=== PATIENT | male | born 1940 | race Caucasian/White ===

== ENCOUNTER 2018-10-06 11:44 | Day surgery (SDC) | payer MEDICARE, OTHER ==
[~2018-10-06 11:44] MED LIST: 0.9 % SODIUM CHLORIDE 10 ML VIAL IVP ONE; CEFAZOLIN 2 Gram 2 GM/50 ML BAG IVPB ONE; CELECOXIB 100 MG CAPSULE PO ONE; FAMOTIDINE 20MG TABLET PO ONE; MECLIZINE 25 MG TABLET PO ONE; METOCLOPRAMIDE 10 MG TABLET PO ONE; TRANEXAMIC ACID 1,000 MG/10 ML ML IV ONE; VANCOMYCIN HCL 1,000 MG in DEXTROSE 5 % IN WATER 250 ML IVPB ONE
[2018-10-06] MEDS ORDERED: BUPIVACAINE 0.5% W/EPI MPF 30 ML VIAL IVP ONE (11:45)
[2018-10-06] MEDS ORDERED: MIDAZOLAM HCL 2MG/2ML VIAL IV ONE (11:45)
[2018-10-06] MEDS ORDERED: PROPOFOL 10 MG/ML VIAL IV ONE (11:45)
[2018-10-06] MEDS ORDERED: FENTANYL PF 100MCG/2ML VIAL IV ONE (11:45)
[2018-10-06] MEDS ORDERED: TRANEXAMIC ACID 1,000 MG/10 ML ML IV ONE (11:45)
[2018-10-06] MEDS ORDERED: LIDOCAINE 2% MDV (20MG/ML) 20ML VIAL IV ONE (11:45)
[2018-10-06 13:21] LABS: ABO GROUP A; ANTIBODY SCREEN NEGATIVE (NEGATIVE); RH TYPE POSITIVE
[2018-10-06] MEDS ORDERED: ONDANSETRON HCL IV 4 MG/2 ML VIAL IVP PRN (15:08)
[2018-10-06] MEDS ORDERED: AL HYDROX/MAG HYDROX 30ML UD PO PRN (15:08)
[2018-10-06] MEDS ORDERED: KETOROLAC 30 MG/ML VIAL IVP PRN ×2 (15:08)
[2018-10-06] MEDS ORDERED: ZOLPIDEM TARTRATE 5 MG TABLET PO PRN (15:08)
[2018-10-06] MEDS ORDERED: DIPHENHYDRAMINE HCL 25 MG CAPSULE PO PRN (15:08)
[2018-10-06] MEDS ORDERED: TRAMADOL HCL 50 MG TABLET PO PRN (15:08)
[2018-10-06] MEDS ORDERED: BISACODYL 10 MG SUPP RC PRN (15:08)
[2018-10-06] MEDS ORDERED: ACETAMINOPHEN 325 MG TAB PO PRN (15:08)
[2018-10-06] MEDS ORDERED: HYDROCODONE/APAP 10/325 TABLET PO PRN ×2 (15:08)
[2018-10-06] MEDS ORDERED: NALOXONE 0.4 MG/1 ML VIAL IVP PRN (15:08)
[2018-10-06] MEDS ORDERED: MAGNESIUM HYDROXIDE 30 ML UDC PO PRN (15:08)
[2018-10-06] MEDS ORDERED: HYDROMORPHONE HCL 2 MG/ML VIAL IM PRN (15:08)
[2018-10-06] MEDS ORDERED: ACETAMINOPHEN W/ CODEINE 300MG/60MG TABLET PO PRN ×2 (15:08)
[2018-10-06] MEDS: PATIENT OWN MED: METFORMIN 500 MG PO SCH ×2 (18:06→21:10)
[2018-10-06] MEDS: PATIENT OWN MED: LOSARTAN 50 MG PO SCH (18:07)
[2018-10-06] MEDS: POTASSIUM CHLORIDE/D5-0.9%NACL 20 MEQ/1,000 ML BAG IV SCH ×2 (20:09→23:42)
[2018-10-06] MEDS: CEFAZOLIN 2 Gram 2 GM/50 ML BAG IVPB SCH (21:19)
[2018-10-06] MEDS: DOCUSATE SODIUM 100 MG CAPSULE PO SCH (21:19)
[2018-10-07] MEDS: CEFAZOLIN 2 Gram 2 GM/50 ML BAG IVPB SCH ×2 (05:12→12:03)
[2018-10-07 06:57] LABS: HEMATOCRIT 38.2 % (42.0-52.0); HEMOGLOBIN 12.3 gm/dl (14.0-18.0)
[2018-10-07 07:43] LABS: BLOOD UREA NITROGEN 13 mg/dL (8-23); CREATININE 0.8 mg/dL (0.7-1.2); EST GLOMERULAR FILTRATION RATE > 60 mL/min; GLUCOSE,RANDOM 173 mg/dL (74-109)
--- NOTE | 2018-10-07 08:08 | Rehab Evaluation ---
Patient Information - Patient Information Diagnosis: right knee OA Ordered Treatment: OT Evaluate and Treat Status: Initial Evaluation Surgery: Yes (right TKA) Date of Surgery: 10/06/18 Past Medical/Surgical Hx: PAST MEDICAL/SURGICAL HISTORY Past Surgical History bilat hip replacements LTKA cervical fusion tonsils hernias bilat cats detached retina left shoulder RTC PMH - Respiratory Hx Respiratory Disorders No PMH - Cardiovascular Hx Cardiovascular Disorders Yes Hx Hypertension Yes: on meds good control Exercise Tolerance Good Comment: works out 3 x's a week PMH - Neuro Hx Neurological Disorders No PMH - GI Hx Gastrointestinal Disorders No PMH - Hx Genitourinary Disorders No PMH - Endocrine Hx Endocrine Disorders Yes Hx Diabetes Yes: Dx'd 8 yrs ago Hx of NIDDM Yes Comment: blood sugars 115-125 A1C 6.1 PMH - Musculoskeletal Hx Musculoskeletal Disorders Yes Hx Arthritis Yes PMH - Psych Hx Psychiatric Problems No PMH - Hematology/Oncology Hx Hematology/Oncology Yes Disorders Hx Cancer Yes: skin CA Premorbid Status: Detail (Pt lives with spouse in a 2 story condo, he stays on the main level for the most part. He has 2 steps at the entrance, no handrails but there are things to hold onto. Pt has a walk in shower with a seat and grab bars as well as an elevated toilet, no grab bars. He and spouse share home mgmt, meal prep and laundry. His daughter will be staying with him until Friday. He has a sock aid, rn gyn, long shoe horn, straight cane and 2 wheeled walker.) Social History: Detail (Pt reports he has a supportive spouse and daughter.) Precautions: [place], Fall - Time With Patient Total Time Spent With Patient (Min): 30 Treatment Procedures: Detail (OT eval low complexity) Subjective Information - Subjective Information Per Patient Objective Data - Pain Pain Present: Yes (2-12/06) - Mental Status Patient Orientation: Oriented x3 - Visual Perception Appears within normal limits for therapeutic activities - ROM Within normal limits (Francis UE AROM WNL) - Strength/Tone Within normal limits (Francis UE strength WNL) - Coordination Appears within normal limits for therapeutic activities - Transfers Independent (Ind with sit to stand from chair height.) - Balance Balance Sitting: Good Balance Standing: Good - Sensation Intact - Gait Detail (Pt ambulating in room with and without 2 wheeled walker.) - ADL's/IADL's Detail (Pt educated and able to demonstrate learning of modified LE dressing techniques including donning pants, socks and tennis shoes using sock aid. Reviewed kitchen and shower safety and modifications, pt verbalized understanding.) Therapy Assessment - Therapy Assessment Detail (Pt is Ind with modified LE dressing techniques.) Problem List - Problem List Occupational Therapy Problem List: Detail (No current IP OT problems identified. ) Goals - Goals Occupational Therapy Goals: No current IP OT goals identified. Prognosis - Prognosis Good Plan - Plan Occupational Therapy Plan: No further IP OT recommended. Thank you for this referral.
[2018-10-07] MEDS: DOCUSATE SODIUM 100 MG CAPSULE PO SCH (09:02)
[2018-10-07] MEDS: PATIENT OWN MED: METFORMIN 500 MG PO SCH (09:03)
[2018-10-07] MEDS: PATIENT OWN MED: LOSARTAN 50 MG PO SCH (09:03)
[2018-10-07] MEDS: POTASSIUM CHLORIDE/D5-0.9%NACL 20 MEQ/1,000 ML BAG IV SCH (09:06)
--- NOTE | 2018-10-07 09:32 | Rehab Evaluation ---
Patient Information - Patient Information Diagnosis: right knee OA Ordered Treatment: PT Evaluate and Treat Status: Initial Evaluation Surgery: Yes (right TKA) Date of Surgery: 10/06/18 Past Medical/Surgical Hx: PAST MEDICAL/SURGICAL HISTORY Past Surgical History bilat hip replacements LTKA cervical fusion tonsils hernias bilat cats detached retina left shoulder RTC PMH - Respiratory Hx Respiratory Disorders No PMH - Cardiovascular Hx Cardiovascular Disorders Yes Hx Hypertension Yes: on meds good control Exercise Tolerance Good Comment: works out 3 x's a week PMH - Neuro Hx Neurological Disorders No PMH - GI Hx Gastrointestinal Disorders No PMH - Hx Genitourinary Disorders No PMH - Endocrine Hx Endocrine Disorders Yes Hx Diabetes Yes: Dx'd 8 yrs ago Hx of NIDDM Yes Comment: blood sugars 115-125 A1C 6.1 PMH - Musculoskeletal Hx Musculoskeletal Disorders Yes Hx Arthritis Yes PMH - Psych Hx Psychiatric Problems No PMH - Hematology/Oncology Hx Hematology/Oncology Yes Disorders Hx Cancer Yes: skin CA Premorbid Status: Detail (Pt lives with spouse in a 2 story condo, he stays on the main level for the most part. He has 2 steps at the entrance, no handrails but there are things to hold onto. Pt has a walk in shower with a seat and grab bars as well as an elevated toilet, no grab bars. He and spouse share home mgmt, meal prep and laundry. His daughter will be staying with him until Friday. He has a sock aid, water supervisor, long shoe horn, straight cane and 2 wheeled walker.) Social History: Detail (Pt reports he has a supportive spouse and daughter.) Precautions: [place], Fall - Time With Patient Total Time Spent With Patient (Min): 25 Treatment Procedures: Detail (Initial Evaluation, gait training, instruction in HEP.) Subjective Information - Subjective Information Per Patient (The patient has no complaints of pain.) Objective Data - Mental Status Patient Orientation: Oriented x3 - Visual Perception Appears within normal limits for therapeutic activities - ROM Not within normal limits (The patient's R knee AROM is limited s/p surgery. All other LE AROM is WNL.) - Strength/Tone Not within normal limits (The patient's R LE strength was not formally tested but is WFL. LE strength is generally 5/5.) - Bed Mobility Independent (The patient is independent with supine to and from sit transfer.) - Transfers Independent (The patient was independent with sit to and from stand transfer.) - Balance Balance Sitting: Good Balance Standing: Good - Sensation Intact - Gait Detail (The patient ambulated with standard cane WBAT on the R LE a distance of 200 feet x 1, independently. The patient ambulated on stairs with use of railing and standard cane using proper technique with supervision for safety only.) Therapy Assessment - Therapy Assessment Detail (The patient is independent with bed mobility, transfers and ambulation. The patient has met all inpatient PT goals and is discharged from inpatient PT.) Patient Education - Patient Education Teaching Topic: Exercise/Activity (The patient completed TKA HEP including gluteal sets, ankle pumps, quad sets, hamstring sets, SLR and heel slides.) Response: Return Demonstration Teaching Method: Demonstration Teaching Recipient: Patient Barriers To Learning: None Problem List - Problem List Physical Therapy Problem List: Detail (Decreased R knee AROM and R LE strength as to be expected following surgery.) Occupational Therapy Problem List: Detail (No current IP OT problems identified. ) Goals - Goals Physical Therapy Goals: All inpatient PT goals have been met. Occupational Therapy Goals: No current IP OT goals identified. Prognosis - Prognosis Good Plan - Plan Physical Therapy Plan: Patient is discharged from inpatient PT. Patient is to continue with Home PT. Occupational Therapy Plan: No further IP OT recommended. Thank you for this referral.
--- NOTE | 2018-10-07 09:41 | Operative Note ---
DATE OF SURGERY: 10/06/2018 Surgeon: Wilbert Rae M.D. PREOPERATIVE DIAGNOSIS: Endstage arthrosis of the right knee. POSTOPERATIVE DIAGNOSIS: Endstage arthrosis of the right knee. OPERATION: Cemented right total knee arthroplasty, using [employer] components, with a size 7 cobalt-chrome femur, a size 7 stem tibial baseplate, a 9 mm lipped tibial insert, and a 35 mm all plastic patella. Anesthesia: Spinal. PREPARATION: Chloraprep. INDIVIDUAL CONSIDERATIONS: None. PROCEDURE: The patient was taken to the operating room and placed supine on the operating room table. He had a successful induction of a spinal anesthetic. The right lower extremity was prepped and draped in the usual fashion. The patient had a midline approach to the knee. Sharp dissection was carried down through the skin and subcutaneous tissue, small veins were coagulated with a Bovie. A medial arthrotomy was performed, the patella was everted, the knee was flexed. The patient had exposed bone throughout with large osteophytes. The fat pad was resected, the ACL was sacrificed. Provisional anterior meniscectomies were performed and the capsule was released from the medial proximal tibia. The initial femoral photogrammetry airplane pilot hole was then made free hand. The intramedullary femoral cutting jig was placed. It was cut in 7.0 degrees of valgus and adjusted for rotation, secured with pins for a 10 mm resection. The initial transverse cut was then made. A skid guide was placed in the anterior and posterior photogrammetry airplane pilot holes. It was found that a size 7 would be appropriate. The anterior and posterior cuts followed by chamfer cuts were made. Osteophytes removed and a size 7 trial was found to fit well. The tibia was brought forward. The remainder of the meniscal remnants were removed with a Bovie. The extraarticular tibial cutting jig was placed. It was cut in neutral with a 3 degree AP slope. Care was taken to adjust for rotation and flexion using the extraarticular alignment guide. It was set for a 9 mm resection, T'd off the high lateral side and secured with pins. When cutting the tibia, care was taken to preserve the PCL insertion on the tibia. Osteophytes were removed and it was found that a size 7 trial fit appropriately. It was adjusted for rotation and secured with pins. With a 9 mm lip trial and femoral trial, there was excellent motion and stability. Ligamentous balance and rotation alignment were thought to be normal. The femoral photogrammetry airplane pilot holes were impacted and the tri flange tibial keel stamp was impacted and these trial components were removed. The patient had a thick patella and roughly 9 mm of bone was removed free hand. I could easily fit a 35 patella and the 3 photogrammetry airplane pilot holes were drilled. The tourniquet was let down briefly to get bleeders posteriorly and then placed back up again. The knee was then thoroughly irrigated out with pulsatile Betadine and saline to remove any visual or palpable debris. The bony surfaces were then dried. A size 7 stem tibia baseplate was cemented into place, followed by impaction of the 9 mm lipped tibial insert, followed by cementing in the size 7 cobalt-chrome femur, followed by cementing in the 35 mm patella. The implant surfaces were compressed, excess cement was removed, and after the cement had set, there was excellent motion and stability, ligamentous balance, rotation alignment, and patellofemoral tracking were normal. No lateral release was required. Again, irrigation, the tourniquet was let down, hemostasis was obtained with a Bovie. I infiltrated the skin and periosteum and subq with 30 mL of 0.5% Marcaine with epinephrine. The capsule was then closed with a running 2 Quill, the subq was closed in layers of running 0 Quill, the skin was closed with doyle. I then mixed 1 gram of tranexamic acid with 30 mL of saline, injected into the knee through a sterile 10 gauge needle and a sterile bulky compressive SHENA type dressing was applied. The patient tolerated the procedure well. The needle and sponge counts were correct. Estimated blood loss was minimal. He was taken back to recovery in good condition. There were no complications. BAKARI
[2018-10-07] MEDS ORDERED: FERROUS SULFATE 325 MG TAB PO SCH (10:00)
[2018-10-07] MEDS ORDERED: PATIENT OWN MED: ATENOLOL 50 MG PO SCH (10:00)
[2018-10-07] MEDS ORDERED: RIVAROXABAN 10 MG TABLET PO SCH (10:00)
[2018-10-07] MEDS ORDERED: PATIENT OWN MED: MULTIVITAMIN PO SCH (10:00)
[2018-10-07] MEDS ORDERED: PATIENT OWN MED: SIMVASTATIN 40 MG PO SCH (10:00)
[2018-10-07] MEDS ORDERED: PATIENT OWN MED: ASPIRIN 81 MG PO SCH (10:00)
== END 2018-10-07 13:15 | disposition home health service (06) ==
LOC: SUR 11:44 → MEDSURG 15:56 → SUR 10-07 13:15
PROVIDERS: ATTEND Orthopaedic Surgery
DX: M17.11 Unilateral primary osteoarthritis, right knee (principal); I10 Essential (primary) hypertension; E11.9 Type 2 diabetes mellitus without complications; E78.00 Pure hypercholesterolemia, unspecified
CPT/HCPCS: 27447; 01402; 64447; 85018; 85014; 80048; 86900; 86901; 86850; 76942; J3370; J3010; J0690 ×2; J3490 ×3; G8978; G8979; G8980; C1776; J3480; J7060